=== PATIENT | female | born 1985 | race Caucasian/White ===

== ENCOUNTER 2019-03-08 05:34 | Emergency (ER) | payer OTHER ==
[~2019-03-08] VITALS: Ht 149.9 cm; Wt 68.2 kg
[2019-03-08 05:37] VITALS: BP 111/50
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
--- NOTE | 2019-03-08 06:57 | NUR ---
REPORT RECEIVED FROM AMADO BOTELLO.
--- NOTE | 2019-03-08 07:03 | NUR ---
Patient given discharge instructions and they have confirmed that they understand the instructions. Patient ambulatory with steady gait.
== END 2019-03-08 07:04 | disposition home or self-care (01) ==
LOC: EDBD 05:34 → ED 06:56
DX: Z04.9 Encounter for examination and observation for unspecified reason (principal); F17.200 Nicotine dependence, unspecified, uncomplicated
CPT/HCPCS: 99283